=== PATIENT | male | born 1965 | race Caucasian/White ===

== ENCOUNTER 2016-08-20 12:00 | Emergency (ER) | payer OTHER ==
[~2016-08-20] VITALS: Ht 167.6 cm; Wt 115.0 kg
[~2016-08-20 12:00] MED LIST: ATOR40TA78 PO; CYCL-259 PO; GLIM4TAB2 PO; HYDR-3138 PO; LISI-167 PO; LOSA25TA5 PO; METF750T2 PO; OMEG1CAP6 PO; OMEP-110 PO; OXYC-229 PO; Will bring list DOS
[2016-08-20] MEDS ORDERED: HYDROmorphone 1 MG/ML, 1ML IM ONE (13:30)
[2016-08-20] MEDS ORDERED: METF500T4 PO (13:35)
[2016-08-20] MEDS ORDERED: HYDROmorphone 1 MG/ML, 1ML ONE (13:45)
[2016-08-20 14:20] LABS: BLOOD UREA NITROGEN 15 mg/dL (7-18)
[2016-08-20] MEDS ORDERED: GADOBUTROL 10 MMOL/10 ML PFS ONE (15:17)
[2016-08-20 18:03] VITALS: BP 119/68
== END 2016-08-20 18:07 | disposition home or self-care (01) ==
LOC: ED 13:39
DX: G97.82 Other postprocedural complications and disorders of nervous system (principal); R10.32 Left lower quadrant pain; G96.0 Cerebrospinal fluid leak; M54.30 Sciatica, unspecified side; Z88.0 Allergy status to penicillin
CPT/HCPCS: 36415; 72158; 74176; 80048; 81003; 82040; 85025; 85651; 86140; 96372; 99285; A9585; J1170

== ENCOUNTER 2017-12-17 20:23 | Emergency (ER) | payer SELFPAY ==
[~2017-12-17] VITALS: Ht 180.3 cm; Wt 121.2 kg
[~2017-12-17 20:23] MED LIST changes: -HYDR-3138 PO; +HYDR-3237 PO; +METF500T5 PO; -OXYC-229 PO; +OXYC-307 PO
[2017-12-17 20:34] VITALS: BP 143/91
[2017-12-17] MEDS ORDERED: METHOCARBAMOL 750 MG TABLET PO ONE (21:00)
[2017-12-17] MEDS ORDERED: KETOROLAC 30 MG/1 ML IM ONE (21:00)
[2017-12-17] MEDS ORDERED: METHOCARBAMOL 750 MG TABLET ONE ×2 (21:13→21:33)
[2017-12-17] MEDS ORDERED: KETOROLAC 30 MG/1 ML ONE (21:13)
== END 2017-12-17 21:20 | disposition home or self-care (01) ==
LOC: ED 21:05
DX: S46.012A Strain of muscle(s) and tendon(s) of the rotator cuff of left shoulder, initial encounter (principal); S13.4XXA Sprain of ligaments of cervical spine, initial encounter; S33.5XXA Sprain of ligaments of lumbar spine, initial encounter; S23.3XXA Sprain of ligaments of thoracic spine, initial encounter; Y04.8XXA Assault by other bodily force, initial encounter; Y93.89 Activity, other specified; Y92.009 Unspecified place in unspecified non-institutional (private) residence as the place of occurrence of the external cause; Y99.8 Other external cause status
CPT/HCPCS: 72050; 72072; 72110; 96372; 99284; J1885

== ENCOUNTER 2020-07-31 06:11 | Day surgery (SDC) | payer MEDICAID ==
[~2020-07-31] VITALS: Ht 167.6 cm; Wt 133.0 kg
[~2020-07-31 06:11] MED LIST changes: -CYCL-259 PO; +CYCL10TA2 PO; -GLIM4TAB2 PO; +GLIM4TAB8 PO; +LOSA25TA25 PO; -LOSA25TA5 PO; +METF500T17 PO; -METF500T5 PO; -METF750T2 PO; +METF750T42 PO; -OXYC-307 PO; +OXYC-380 PO
[2020-07-31] MEDS ORDERED: OMEP-110 PO (06:58)
[2020-07-31] MEDS ORDERED: EMPA1TAB PEG (06:58)
[2020-07-31] MEDS ORDERED: GLIM4TAB8 PO (06:58)
[2020-07-31] MEDS ORDERED: CHLORHEXIDINE 15 ML UDC PO ONE (07:00)
[2020-07-31] MEDS ORDERED: LACTATED RINGERS 1,000 ML IV SCH (07:00)
[2020-07-31 07:03] VITALS: BP 119/77
[2020-07-31 07:08] LABS: ALANINE AMINOTRANSFERASE 30 U/L (12-78); ALBUMIN 3.9 g/dL (3.4-5.0); ANION GAP 6 mmol/L (5-15); CALCIUM 8.8 mg/dL (8.5-10.1); CHLORIDE 106 mmol/L (98-107); CREATININE 0.77 mg/dL (0.7-1.3)
[2020-07-31 07:10] LABS: ALKALINE PHOSPHATASE 74 U/L (45-117); BILIRUBIN,TOTAL 0.4 mg/dL (0.2-1.0); TOTAL PROTEIN 7.9 g/dL (6.4-8.2)
[2020-07-31] MEDS ORDERED: PROPOFOL 50 ML ONE (07:28)
[2020-07-31] MEDS ORDERED: HYDROmorphone 2 MG/ML, 1ML IVPush PRN (08:00)
[2020-07-31] MEDS ORDERED: MEPERIDINE/PF 25MG/0.5ML IVPush PRN (08:00)
[2020-07-31] MEDS ORDERED: FENTANYL PF 100 MCG/2ML IV PRN (08:00)
[2020-07-31] MEDS ORDERED: LABETALOL 5MG/ML, 20ML IV PRN (08:00)
[2020-07-31] MEDS ORDERED: DIAZEPAM 5 MG/ML, 2ML IVPush PRN (08:00)
[2020-07-31] MEDS ORDERED: PROMETHAZINE 25 MG/ML, 1ML IV PRN (08:00)
[2020-07-31] MEDS ORDERED: OXYcodone 5 MG/5 ML ORAL.SOL UDC PO PRN (08:00)
[2020-07-31] MEDS ORDERED: hydrALAzine 20 MG/ML, 1ML IV PRN (08:00)
[2020-07-31] MEDS ORDERED: ACETAMINOPHEN 325 MG TABLET PO PRN (08:00)
[2020-07-31] MEDS ORDERED: ALBUTEROL SULFATE 2.5 MG/3 ML NPPB PRN (08:00)
[2020-07-31] MEDS ORDERED: KETOROLAC 30 MG/1 ML IV PRN (08:00)
== END 2020-07-31 09:10 | disposition home or self-care (01) ==
LOC: OUT 06:11
PROVIDERS: ATTEND Internal Medicine Gastroenterology
DX: R19.5 Other fecal abnormalities (principal); K64.0 First degree hemorrhoids; K59.00 Constipation, unspecified; I10 Essential (primary) hypertension; E78.5 Hyperlipidemia, unspecified; E11.9 Type 2 diabetes mellitus without complications; E66.01 Morbid (severe) obesity due to excess calories; Z20.822 Contact with and (suspected) exposure to COVID-19; Z68.42 Body mass index [BMI] 45.0-49.9, adult; Z79.84 Long term (current) use of oral hypoglycemic drugs; Z79.899 Other long term (current) drug therapy; Z88.0 Allergy status to penicillin; Z98.84 Bariatric surgery status
CPT/HCPCS: 36415; 45378; 80053; 82962; 87635; 93005; J2704; J7120